=== PATIENT | female | born 1985 | race American Indian/Alaskan Native ===

== ENCOUNTER 2020-07-07 22:42 | Outpatient (CLI) | payer MEDICAID ==
[2020-07-07] MEDS ORDERED: LACTATED RINGERS 1,000 ML IV SCH (23:15)
[2020-07-07 23:32] VITALS: BP 127/75
[2020-07-07] MEDS ORDERED: TERBUTALINE 1 MG/1 ML INJ SUB-Q SCH (23:45)
[2020-07-08] LABS: Bacteria,Urine 4+ /HPF (Negative); Bilirubin,Urine NEG (Negative); Blood,Urine NEG (Negative); Color,Urine Yellow (Yellow); Protein,Urine <15 mg/dL mg/dL (Negative); Urobilinogen,Urine < 2.0 mg/dL (<2.0)
--- NOTE | 2020-07-08 02:00 | Event Note ---
Date: 07/08/20 at 32.1wks by pt report, pt is from [facility] clinic and comes to triage for right upper quadrant pain that worsened yesterday. Pt admits to movement within the same area. Denies headache. Denies vaginal bleeding or leakage of fluid. pt was not feeling ctx but same noted on the monitor. Pelvic exam closed/long and no presenting part felt. FHR reassuring with accels and areas of loss of contact. Urine dip negative and pain and contraction improved after given 1liter of IV fluids. Pt to follow up with her clinic in 1wk. PTL and PIH precaution given inspite of normal vital signs. All questions encouraged and answered.
== END 2020-07-08 01:58 | disposition home or self-care (01) ==
LOC: TRG 22:42 → APU 22:52 → TRG 07-08 01:58
PROVIDERS: ATTEND Obstetrics & Gynecology
DX: O26.893 Other specified pregnancy related conditions, third trimester (principal); R10.11 Right upper quadrant pain; Z3A.32 32 weeks gestation of pregnancy
CPT/HCPCS: 59025; 81001; 96360; 96361; J7120